=== PATIENT | male | born 2000 | race Caucasian/White ===

== ENCOUNTER 2024-03-15 12:22 | Emergency (ER) | payer BC ==
[~2024-03-15] VITALS: Ht 177.8 cm; Wt 81.6 kg
[2024-03-15] MEDS: NAPROXEN 250 MG TABLET PO ONE (14:26)
[2024-03-15] MEDS ORDERED: NAPROXEN 250 MG TABLET ONE (14:26)
[2024-03-15 14:31] VITALS: BP 128/80; TEMP 98; O2SAT 100
== END 2024-03-15 14:31 | disposition home or self-care (01) ==
LOC: ER 13:22
DX: S93.691A Other sprain of right foot, initial encounter (principal); W18.49XA Other slipping, tripping and stumbling without falling, initial encounter; Y93.89 Activity, other specified; Y92.89 Other specified places as the place of occurrence of the external cause; Y99.8 Other external cause status

== ENCOUNTER 2024-09-22 09:50 | Emergency (ER) | payer BC ==
[~2024-09-22] VITALS: Ht 177.8 cm; Wt 83.9 kg
[2024-09-22 10:22] VITALS: TEMP 98.3
[2024-09-22 10:53] VITALS: BP 142/87; O2SAT 98
== END 2024-09-22 10:54 | disposition home or self-care (01) ==
LOC: ER 09:59
DX: S83.422A Sprain of lateral collateral ligament of left knee, initial encounter (principal); X58.XXXA Exposure to other specified factors, initial encounter; Y93.41 Activity, dancing; Y92.89 Other specified places as the place of occurrence of the external cause; Y99.8 Other external cause status